=== PATIENT | female | born 1995 | race Caucasian/White ===

== ENCOUNTER 2017-10-21 14:56 | Emergency (ER) | payer OTHER ==
[~2017-10-21] VITALS: Ht 160 cm; Wt 86.2 kg
[2017-10-21] MEDS ORDERED: NAPR-683 PO (15:54)
[2017-10-21] MEDS ORDERED: BENZ100C PO (15:54)
[2017-10-21] MEDS ORDERED: NEO/5DRO OS (15:54)
[2017-10-21] MEDS ORDERED: BETA15CR5 TP (15:54)
[2017-10-21 15:55] VITALS: BP 121/86
--- NOTE | 2017-10-21 15:55 | PHYS DOC ---
Past History Past Medical History: No Pertinent History Past Surgical History: Smoking: Cigarettes Alcohol Use: None Drug Use: None Adult General Chief Complaint Chief Complaint: SORE THROAT [facility] HPI 22-year-old female patient with a medical problems complaining of nasal congestion and cough and sore throat without fever and chills for the last 2 days. Patient complaining of mild nasal bleeding from a bump she has inside of her nose. Patient states she woke up this morning and had left eye yellow discharge and erythema without foreign body sensation or blurred vision. She also complaining of skin rash behind of right earache for 2 weeks with itching. Patient denies . Review of Systems Review of Systems Constitutional: Denies fever or chills [] Eyes: Denies change in visual acuity, reports left eye redness and discharge HENT: Reports nasal congestion and sore throat Respiratory: Reports cough, denies shortness of breath [] Cardiovascular: No additional information not addressed in HPI [] GI: Denies abdominal pain, nausea, vomiting, bloody stools or diarrhea [] : Denies dysuria or hematuria [] Musculoskeletal: Denies back pain or joint pain [] Integument: Reports skin rash Neurologic: Denies headache, focal weakness or sensory changes [] Endocrine: Denies polyuria or polydipsia [] All other systems were reviewed and found to be within normal limits, except as documented in this note. Allergies Allergies Allergies Coded Allergies Type Severity Reaction Last Updated Verified No Known Drug Allergies 10/21/17 No Physical Exam Physical Exam Constitutional: Well developed, well nourished, mild distress, non-toxic appearance. [] HENT: Normocephalic, atraumatic, bilateral external ears normal, oropharynx moist, pharyngeal erythema and edema without exudate. Eyes: PERRLA, EOMI, left conjunctival erythema without eye tenderness or change of vision Neck: Normal range of motion, no tenderness, supple, no stridor. [] Cardiovascular:Heart rate regular rhythm, no murmur [] Lungs & Thorax: Bilateral breath sounds clear to auscultation [] Abdomen: Bowel sounds normal, soft, no tenderness, no masses, no pulsatile masses. [] Skin: Eczematic pruritic rash behind right ear] Back: No tenderness, no CVA tenderness. [] Extremities: No tenderness, no cyanosis, no clubbing, ROM intact, no edema. [] Neurologic: Alert and oriented X 3, normal motor function, normal sensory function, no focal deficits noted. [] Psychologic: Affect normal, judgement normal, mood normal. [] Current Patient Data Vital Signs Vital Signs Date Time Temp Pulse Resp B/P (MAP) Pulse Ox O2 Delivery O2 Flow Rate FiO2 10/21/17 14:56 98.5 85 20 98 Room Air Lab Results Laboratory Tests Test 10/21/17 15:15 Group A Streptococcus Rapid Negative (NEGATIVE) EKG EKG [] Radiology/Procedures Radiology/Procedures [] Course & Med Decision Making Course & Med Decision Making Pertinent Labs reviewed. (See chart for details) Evaluation of patient in ER showed young patient with complaining of URI symptoms for 2 or 3 days and left conjunctivitis and chronic eczema lesion in behind the left ear. Patient had negative strep test. Patient didn't want to have pain medication while she was in ER. Plan discharge patient home with diagnosis of conjunctivitis and viral URI and eczema. I've spoken with the patient and/or caregivers. I've explained the patient's condition, diagnosis and treatment plan based on information available to me at this time. I've answered the patient's and/or caregivers questions and addressed any concerns. The patient and/or caregivers have a good understanding the patient's diagnosis, condition and treatment plan as can be expected at this point. Vital signs have been stabilized. The patient's condition is stable for discharge from the emergency department. The patient will pursue further outpatient evaluation with her primary care provider or other designated consulting physician as outlined in the discharge instructions. Patient and/or caregivers are agreeable to this plan of care and follow-up instructions have been explained in detail. The patient and/or caregivers have received these instructions in written format and expressed understanding of these discharge instructions. The patient and her caregivers are aware that if any significant change in condition or worsening of symptoms should prompt him to immediately return to this of the closest emergency department. If an emergent department is not readily available I would encourage him to call 911. Elenita Disclaimer Elenita Disclaimer This electronic medical record was generated, in whole or in part, using a voice recognition dictation system. Departure Departure: Impression: Primary Impression: Acute conjunctivitis of left eye Additional Impressions: Eczema Upper respiratory infection Viral pharyngitis Tobacco abuse Tobacco abuse counseling Disposition: HOME, SELF-CARE (At 1530) Condition: IMPROVED Referrals: PCP,LEONEL (PCP) Patient Instructions: Bacterial Conjunctivitis, Eczema, Viral Pharyngitis Additional Instructions: Drink plenty of liquids Follow-up with your primary care physician in 3-5 days Return to ER if not getting better Scripts Naproxen (NAPROSYN) 500 Mg Tablet 1 TAB PO BID, #14 TAB 2 Refills Prov: ROSE MARTE MD 10/21/17 Benzonatate (TESSALON PERLE) 100 Mg Capsule 1 CAP PO TID, #21 CAP Prov: ROSE MARTE MD 10/21/17 Betamethasone Dipropionate (BETAMETHASONE DIPROPIONATE) 15 Gm Cream..g. 1 CRYSTAL TP BID, #45 GM 1 Refill Prov: ROSE MARTE MD 10/21/17 Yvan/Polymyx B Sulf/Dexameth (MAXITROL EYE DROPS) 5 Ml Drops.susp 2 DROP OS Q3-4HRS for 5 Days, #5 ML Prov: ROSE MARTE MD 10/21/17 Problem Qualifiers ROSE MARTE MD Oct 21, 2017 15:55
== END 2017-10-21 16:00 | disposition home or self-care (01) ==
LOC: ER 14:56
DX: B34.9 Viral infection, unspecified (principal); J02.8 Acute pharyngitis due to other specified organisms; H10.32 Unspecified acute conjunctivitis, left eye; L30.9 Dermatitis, unspecified; F17.210 Nicotine dependence, cigarettes, uncomplicated; R04.0 Epistaxis; Z71.6 Tobacco abuse counseling
CPT/HCPCS: 87070; 87880; 99284

== ENCOUNTER 2018-01-04 12:04 | Emergency (ER) | payer OTHER ==
[~2018-01-04] VITALS: Ht 160 cm; Wt 77.1 kg
[~2018-01-04 12:04] MED LIST: BENZ100C PO; BETA15CR5 TP; NAPR-683 PO; NEO/5DRO OS
[2018-01-04 13:00] LABS: BILIRUBIN,URINE NEG (NEG); CLARITY,URINE CLOUDY; COLOR,URINE AMBER; GLUCOSE,URINE NEG (NEG)
[2018-01-04 13:01] LABS: BACTERIA,URINE 0 /HPF (0-FEW); NITRITE,URINE NEG (NEG); SQUAMOUS EPITHELIAL CELL,UR MOD /LPF; UROBILINOGEN,URINE 2 mg/dL (0.2 mg/dL)
[2018-01-04 13:02] LABS: AMORPHOUS SEDIMENT,UR PRESENT /HPF
[2018-01-04] MEDS ORDERED: IV NORMAL SALINE 1,000ML 1,000 ML IV ONE (13:15)
[2018-01-04 13:42] LABS: BASO % 0 % (0-3); EOS % 0 % (0-3); HEMATOCRIT 39.3 % (36.0-47.0); HEMOGLOBIN 13.1 g/dL (12.0-15.5); LYMPH # 0.8 x10^3/uL (1.0-4.8); LYMPH % 7 % (24-48); MEAN CORPUSCULAR HEMOGLOBIN 28 pg (25-35); MEAN CORPUSCULAR HGB CONC 33 g/dL (31-37); MEAN CORPUSCULAR VOLUME 84 fL (79-100); MONO # 0.8 x10^3/uL (0.0-1.1); MONO % 7 % (0-9); NEUT # 9.7 x10^3uL (1.8-7.7); NEUT % 86 % (31-73); PLATELET COUNT 213 x10^3/uL (140-400); RED BLOOD COUNT 4.66 x10^6/uL (3.50-5.40); RED CELL DISTRIBUTION WIDTH 13.6 % (11.5-14.5); WHITE BLOOD COUNT 11.4 x10^3/uL (4.0-11.0)
[2018-01-04 13:54] LABS: ALBUMIN 3.6 g/dL (3.4-5.0); ALBUMIN/GLOBULIN RATIO 0.9 (1.0-1.7); CALCIUM 8.9 mg/dL (8.5-10.1); CREATININE 0.8 mg/dL (0.6-1.0); GFR 88.9; POTASSIUM 4.1 mmol/L (3.5-5.1); TOTAL BILIRUBIN 0.3 mg/dL (0.2-1.0); TOTAL PROTEIN 7.8 g/dL (6.4-8.2)
[2018-01-04] MEDS ORDERED: ACETAMINOPHEN 500 MG TABLET PO ONE (14:15)
[2018-01-04 14:19] LABS: U PREG PATIENT NEGATIVE (NEG)
[2018-01-04] MEDS ORDERED: cefTRIAXone IV Push 1 GM VIAL. IVP ONE (14:30)
[2018-01-04] MEDS ORDERED: SULF1TAB24 PO (15:02)
[2018-01-04] MEDS ORDERED: FLUT9.9S NS (15:02)
--- NOTE | 2018-01-04 15:03 | PHYS DOC ---
Past History Past Medical History: No Pertinent History Past Surgical History: Smoking: Cigarettes Alcohol Use: None Drug Use: None Adult General Chief Complaint Chief Complaint: MULTIPLE COMPLAINTS HPI HPI Patient is a 23 year old F who presents with urinary frequency, urgency and discomfort. She also describes low back pain and nasal congestion. She states that her nasal congestion has been present over the past 7-10 days. Her urinary symptoms of an present for approximately 5-7 days. She was on a Z-Lewis which did not seem to help her symptoms. She continues to have nasal congestion and drainage. She denies pain or in her face. She does have mild pain in the back of her neck bilaterally. She describes fever and chills. She continues to be able to eat and drink normally. She has no abdominal pain. She has no other associated symptoms. She has no other exacerbating or relieving factors. Review of Systems Review of Systems Constitutional: Negative except history of present illness Eyes: Denies change in visual acuity, redness, or eye pain [] HENT: Denies nasal congestion or sore throat [] Respiratory: Denies cough or shortness of breath [] Cardiovascular: No additional information not addressed in HPI [] GI: Denies abdominal pain, nausea, vomiting, bloody stools or diarrhea [] : Negative except history of present illness Musculoskeletal: Denies joint pain [] Integument: Denies rash or skin lesions [] Neurologic: Denies headache, focal weakness or sensory changes [] Endocrine: Denies polyuria or polydipsia [] All other systems were reviewed and found to be within normal limits, except as documented in this note. Family History Family History No pertinent family medical history was reported Current Medications Current Medications Current Medications Medications (Trade) Dose Ordered Sig/Aleah Start Time Stop Time Status Last Admin Dose Admin Acetaminophen (Tylenol) 1,000 mg 1X ONCE 01/04/18 14:15 01/04/18 14:16 DC 01/04/18 14:14 500 MG Ceftriaxone Sodium 1 gm/ Sodium Chloride 50 ml @ 100 mls/hr 1X ONCE 01/04/18 14:15 01/04/18 14:27 DC Ceftriaxone Sodium (Rocephin) 1 gm 1X ONCE 01/04/18 14:30 01/04/18 14:31 DC 01/04/18 14:33 1 GM Sodium Chloride 1,000 ml @ 1,000 mls/hr 1X ONCE 01/04/18 13:15 01/04/18 14:14 DC 01/04/18 13:45 1,000 MLS/HR Allergies Allergies Allergies Coded Allergies Type Severity Reaction Last Updated Verified No Known Drug Allergies 10/21/17 No Physical Exam Physical Exam Constitutional: Well developed, well nourished, no acute distress, non-toxic appearance. [] HENT: Normocephalic, atraumatic, moderate nasal mucosa erythema and edema bilaterally Eyes: EOMI, conjunctiva normal, no discharge. [] Neck: Normal range of motion, no tenderness, supple, no stridor. [] Cardiovascular:Heart rate regular rhythm, mild tachycardia noted Lungs & Thorax: Bilateral breath sounds clear to auscultation [] Abdomen: Bowel sounds normal, soft, no tenderness, no masses, no pulsatile masses. [] Skin: Warm, dry, no erythema, no rash. [] Back: No tenderness, no CVA tenderness. [] No significant tenderness to palpation was noted Extremities: No tenderness, no cyanosis, no clubbing, ROM intact, no edema. [] Neurologic: Alert and oriented X 3, normal motor function, normal sensory function, no focal deficits noted. [] Psychologic: Affect normal, judgement normal, mood normal. [] Current Patient Data Vital Signs Vital Signs Date Time Temp Pulse Resp B/P (MAP) Pulse Ox O2 Delivery O2 Flow Rate FiO2 01/04/18 14:48 102.8 119 20 109/49 (69) 99 Room Air Lab Results Laboratory Tests Test 01/04/18 12:30 01/04/18 13:20 Urine Collection Type Void Urine Color [place] Urine Clarity Cloudy Urine pH 6.0 Urine Specific [place] >=1.030 Urine Protein 100 mg/dl (NEG-TRACE) Urine Glucose (UA) Neg mg/dL (NEG) Urine Ketones (Stick) 40 mg/dL (NEG) Urine Blood Large (NEG) Urine Nitrite Neg (NEG) Urine Bilirubin Neg (NEG) Urine Urobilinogen Dipstick 2 mg/dL (0.2 mg/dL) Urine Leukocyte Esterase Neg (NEG) Urine RBC 3-5 /HPF (0-2) Urine WBC 1-4 /HPF (0-4) Urine Squamous Epithelial Cells Mod /LPF Urine Amorphous Sediment Present /HPF Urine Bacteria 0 /HPF (0-FEW) Urine Mucus Marked /LPF Urine Test Negative (NEG) White Blood Count 11.4 x10^3/uL (4.0-11.0) H Red Blood Count 4.66 x10^6/uL (3.50-5.40) Hemoglobin 13.1 g/dL (12.0-15.5) Hematocrit 39.3 % (36.0-47.0) Mean Corpuscular Volume 84 fL (79-100) Mean Corpuscular Hemoglobin 28 pg (25-35) Mean Corpuscular Hemoglobin Concent 33 g/dL (31-37) Red Cell Distribution Width 13.6 % (11.5-14.5) Platelet Count 213 x10^3/uL (140-400) Neutrophils (%) (Auto) 86 % (31-73) H Lymphocytes (%) (Auto) 7 % (24-48) L Monocytes (%) (Auto) 7 % (0-9) Eosinophils (%) (Auto) 0 % (0-3) Basophils (%) (Auto) 0 % (0-3) Neutrophils # (Auto) 9.7 x10^3uL (1.8-7.7) H Lymphocytes # (Auto) 0.8 x10^3/uL (1.0-4.8) L Monocytes # (Auto) 0.8 x10^3/uL (0.0-1.1) Eosinophils # (Auto) 0.0 x10^3/uL (0.0-0.7) Basophils # (Auto) 0.0 x10^3/uL (0.0-0.2) Sodium Level 133 mmol/L (136-145) L Potassium Level 4.1 mmol/L (3.5-5.1) Chloride Level 99 mmol/L (98-107) Carbon Dioxide Level 24 mmol/L (21-32) Anion Gap 10 (6-14) Blood Urea Nitrogen 9 mg/dL (7-20) Creatinine 0.8 mg/dL (0.6-1.0) Estimated GFR (Cockcroft-Gault) 88.9 BUN/Creatinine Ratio 11 (6-20) Glucose Level 86 mg/dL (70-99) Lactic Acid Level 1.0 mmol/L (0.4-2.0) Calcium Level 8.9 mg/dL (8.5-10.1) Total Bilirubin 0.3 mg/dL (0.2-1.0) Aspartate Amino Transferase (AST) 19 U/L (15-37) Alanine Aminotransferase (ALT) 24 U/L (14-59) Alkaline Phosphatase 64 U/L (46-116) Total Protein 7.8 g/dL (6.4-8.2) Albumin 3.6 g/dL (3.4-5.0) Albumin/Globulin Ratio 0.9 (1.0-1.7) L EKG EKG [] Radiology/Procedures Radiology/Procedures [] Course & Med Decision Making Course & Med Decision Making Pertinent Labs and Imaging studies reviewed. (See chart for details) Admission for further evaluation for life-threatening or permanently disabling conditions was declined. Instead she decided to pursue outpatient management with oral antibiotics, nasal saline rinses and nasal spray Dragon Disclaimer Dragon Disclaimer This electronic medical record was generated, in whole or in part, using a voice recognition dictation system. Departure Departure: Impression: Primary Impression: UTI (urinary tract infection) Additional Impression: Upper respiratory infection Referrals: PCPLEONEL (PCP) Patient Instructions: Urinary Tract Infection Additional Instructions: Kaylie was seen in the emergency department for multiple complaints. No emergency medical condition was found on history or physical exam. She did have normal labs with the exception of signs of urinary tract infection. She was started on antibiotic. She was also found to have signs and symptoms consistent with an upper respiratory infection. She was encouraged use nasal saline rinses regularly and was given a nasal steroid spray. She is encouraged to return to the emergency room soon as possible if she develops new or worsening symptoms. She was also advised follow-up with her primary care doctor as needed for further management. Scripts Fluticasone Propionate (Flonase Allergy Relief) 9.9 Ml [place].susp 1 SPRAYS NS BID for 7 Days, BOTTLE Prov: JUDE GOVEA MD 01/04/18 Sulfamethoxazole/Trimethoprim (BACTRIM DS TABLET) 1 Each Tablet 1 TAB PO BID for 7 Days, #14 TAB Prov: JUDE GOVEA MD 01/04/18 Problem Qualifiers Primary Impression: UTI (urinary tract infection) Urinary tract infection type: site unspecified Hematuria presence: with hematuria Qualified Codes: N39.0 - Urinary tract infection, site not specified ; R31.9 - Hematuria, unspecified Additional Impression: Upper respiratory infection URI type: unspecified URI Qualified Codes: J06.9 - Acute upper respiratory infection, unspecified JUDE GOVEA MD Jan 04, 2018 15:03
[2018-01-04 15:20] VITALS: BP 100/44
== END 2018-01-04 15:20 | disposition home or self-care (01) ==
LOC: ER 12:04
DX: N39.0 Urinary tract infection, site not specified (principal); J06.9 Acute upper respiratory infection, unspecified; M54.2 Cervicalgia; F17.210 Nicotine dependence, cigarettes, uncomplicated
CPT/HCPCS: 36415; 80053; 81001; 81025; 83605; 85025; 96361; 96374; 99284; J0696; J7030

== ENCOUNTER 2018-01-11 03:06 | Emergency (ER) | payer OTHER ==
[~2018-01-11] VITALS: Ht 160 cm; Wt 84.0 kg
[~2018-01-11 03:06] MED LIST changes: +FLUT9.9S NS; +SULF1TAB24 PO
--- NOTE | 2018-01-11 03:10 | ED.ADGEN ---
Past History Past Medical History: No Pertinent History, UTI Past Surgical History: Smoking: Cigarettes Alcohol Use: None Drug Use: None Adult General Chief Complaint Chief Complaint ".. I was worried I was hypothermic.. my Temp was 96. at home.. " " I was in here the other day for UTI.. and I have not been taking my antibiotic s as directed.. the pills were too big..." HPI HPI Patient is a 23 year old female who presents with above hx and complaints of fever, UTI, hypothermia and anxiety. Pt. has been non-compliant with current antibiotic Bactrim since her visit on 01/04. Pt. states she is bad about taking her antibiotics. Pt. states she get anxiety and was worried. so she wanted to come in and get her temp. checked. No hx of travel, ill contacts or travel. Review of Systems Review of Systems Constitutional:Hx. of fever or chills []and reported low temp. Eyes: Denies change in visual acuity, redness, or eye pain [] HENT: Denies nasal congestion or sore throat [] Respiratory: Denies cough or shortness of breath [] Cardiovascular: No additional information not addressed in HPI [] GI: Denies abdominal pain, nausea, vomiting, bloody stools or diarrhea [] :Hx of s dysuria or hematuria [] Musculoskeletal: Denies back pain or joint pain [] Integument: Denies rash or skin lesions [] Neurologic: Denies headache, focal weakness or sensory changes [] Endocrine: Denies polyuria or polydipsia [] All other systems were reviewed and found to be within normal limits, except as documented in this note. Family History Family History Non-contributory Current Medications Current Medications Current Medications Medications (Trade) Dose Ordered Sig/Aleah Start Time Stop Time Status Last Admin Dose Admin Ceftriaxone Sodium (Rocephin Im) 1 gm 1X ONCE 01/11/18 03:30 01/11/18 03:31 DC 01/11/18 03:30 1 GM Allergies Allergies Allergies Coded Allergies Type Severity Reaction Last Updated Verified No Known Drug Allergies 10/21/17 No Physical Exam Physical Exam Constitutional: Well developed, well nourished, no acute distress, non-toxic appearance. [] HENT: Normocephalic, atraumatic, bilateral external ears normal, oropharynx moist, no oral exudates, nose normal. [] Eyes: PERRLA, EOMI, conjunctiva normal, no discharge. [] Neck: Normal range of motion, no tenderness, supple, no stridor. [] Cardiovascular:Heart rate regular rhythm, no murmur [] Lungs & Thorax: Bilateral breath sounds clear to auscultation [] Abdomen: Bowel sounds normal, soft, no tenderness, no masses, no pulsatile masses. [] Scar. Skin: Warm, dry, no erythema, no rash. [] Back: No tenderness, no CVA tenderness. [] Extremities: No tenderness, no cyanosis, no clubbing, ROM intact, no edema. [] Neurologic: Alert and oriented X 3, normal motor function, normal sensory function, no focal deficits noted. [] Psychologic: Affect normal, judgement normal, mood normal. [] Current Patient Data Vital Signs Vital Signs Date Time Temp Pulse Resp B/P (MAP) Pulse Ox O2 Delivery O2 Flow Rate FiO2 01/11/18 03:15 98.1 96 20 99 Room Air EKG EKG [] Radiology/Procedures Radiology/Procedures [] Course & Med Decision Making Course & Med Decision Making Pertinent Labs and Imaging studies reviewed. (See chart for details). Pt. to take tylenol and ibuprofen for discomfort and fever. Must take antibiotics as directed. May crush the pills and mix them with food. Must completed the antibiotics as directed. Follow up with primary. Return if any concerns. Push fruit juices and Vit. C drinks . [] Final Impression Final Impression 1. Hx. UTI 2. Hx on Non-compliance- meds 3. Anxiety[] Problems: Dragon Disclaimer Dragon Disclaimer This electronic medical record was generated, in whole or in part, using a voice recognition dictation system. SILVANA MCKEON MD January 11, 2018 03:10
[2018-01-11 03:15] VITALS: BP 115/76
[2018-01-11] MEDS ORDERED: SULF1TAB24 PO (03:24)
[2018-01-11] MEDS ORDERED: cefTRIAXone IM 1 GM VIAL IM ONE (03:30)
== END 2018-01-11 03:50 | disposition home or self-care (01) ==
LOC: ER 03:06
DX: F41.9 Anxiety disorder, unspecified (principal); F17.210 Nicotine dependence, cigarettes, uncomplicated; Z87.440 Personal history of urinary (tract) infections; Z91.19 Patient's noncompliance with other medical treatment and regimen
CPT/HCPCS: 96372; 99283; J0696